=== PATIENT | male | born 1950 | race Caucasian/White ===

== ENCOUNTER 2019-01-22 07:45 | Day surgery (SDC) | payer MEDICARE, OTHER ==
[~2019-01-22] VITALS: Ht 177.8 cm; Wt 81.8 kg
[~2019-01-22 07:45] MED LIST: ASPI325T6 PO; ASPIRIN 32325 MG/TAB PO; ATIVAN 1MG T1 MG/TAB PO; CARDURA 1MG1 MG PO; CRESTOR40 MG PO; EFFEXOR-XR150 MG PO; EPA FISH OIL1000 MG PO; LIPITOR 40MG TA40 MG PO; MILK OF MA400 MG/5 M PO; MULTIPLE VITAMI1 CAP PO; NIACIN500 M1 PO; NORCO 325 MG-101 TAB PO; NORCO 325 MG-7.1 TAB PO; PRILOSEC10 MG PO; PROSCAR 5MG5 MG PO; PROSTATE SUPPOR PO; ROXICODONE 55 MG/TAB PO; SENOKOT8.6 MG PO; STOOL SOFTENER250 M1 PO; TOPROL XL 25MG25 MG PO; TYLENOL 500MG500 MG PO; ULTRAM 50MG TAB50 MG PO; [UNRECOGNIZED DRUG - OTHER]; [UNRECOGNIZED DRUG - OTHER] PO
[2019-01-22 08:14] VITALS: BP 143/100; PULSE 85; TEMP 97.4
[2019-01-22] MEDS ORDERED: ASPIRIN E.C. 8181 MG PO (08:21)
[2019-01-22] MEDS ORDERED: CARDURA 2MG2 MG PO (08:21)
[2019-01-22] MEDS ORDERED: EFFEXOR-XR150 MG PO (08:22)
[2019-01-22] MEDS ORDERED: PROSCAR 5MG5 MG PO (08:23)
[2019-01-22] MEDS ORDERED: LIPITOR 40MG TA40 MG PO (08:24)
[2019-01-22] MEDS ORDERED: EPA FISH OIL1 SGL PO (08:24)
[2019-01-22] MEDS ORDERED: ATIVAN 1MG T1 MG/TAB PO (08:25)
[2019-01-22] MEDS ORDERED: MULTIPLE VITAMI1 CAP PO (08:26)
[2019-01-22] MEDS ORDERED: PRILOSEC 20MG20 MG PO (08:28)
[2019-01-22] MEDS ORDERED: TYLENOL 500MG500 MG PO (08:30)
[2019-01-22] MEDS ORDERED: STOOL SOFTENER240 M1 PO (08:30)
[2019-01-22] MEDS ORDERED: COZAAR 25MG25 MG/TAB PO (08:31)
[2019-01-22] MEDS ORDERED: PROBIOTIC FORMU1 CAP PO (08:32)
[2019-01-22] MEDS ORDERED: MELATONIN5 M1 PO (08:32)
--- NOTE | 2019-01-22 08:34 | NUR ---
TO RM AT 0747- CALL LIGHT IN REACH AT BEDSIDE
[2019-01-22 09:10] VITALS: BP 137/90; PULSE 76
--- NOTE | 2019-01-22 09:10 | NUR ---
TO BAY 4 PER CART FROM ENDOSCOPY. ALERT ORIENTED X3, TALKING TO STAFF AND . AMBULATED TO RECLINER WITH ASSIST AND TOLERATED WELL. RECEIVED COFFEE AND MUFFIN. DR MACKEY TALKED TO PATIENTS PRIOR TO PATIENT RETURNING TO .
[2019-01-22 09:15] VITALS: BP 113/94; PULSE 88
[2019-01-22 09:30] VITALS: BP 111/77; PULSE 71
--- NOTE | 2019-01-22 09:30 | NUR ---
ATE 100% AND TOLERATED WELL.
--- NOTE | 2019-01-22 09:50 | NUR ---
RECEIVED DISCHARGE INSTRUCTIONS AND VERBALIZED UNDERSTANDING. DISCONTINUED IV AND INT- CATHETER INTACT. PATIENT GETTING DRESSED
--- NOTE | 2019-01-22 10:00 | NUR ---
DISCHARGED PER WC BY NURSING STAFF TO PRIVATE CAR IN CARE OF - [facility].
== END 2019-01-22 10:55 | disposition home or self-care (01) ==
LOC: SDCO 07:45
DX: Z12.11 Encounter for screening for malignant neoplasm of colon (principal); Z86.010 Personal history of colon polyps; Z80.0 Family history of malignant neoplasm of digestive organs; K57.30 Diverticulosis of large intestine without perforation or abscess without bleeding; I10 Essential (primary) hypertension; I25.10 Atherosclerotic heart disease of native coronary artery without angina pectoris; K21.9 Gastro-esophageal reflux disease without esophagitis; K44.9 Diaphragmatic hernia without obstruction or gangrene; Z79.899 Other long term (current) drug therapy; Z79.82 Long term (current) use of aspirin; Z82.49 Family history of ischemic heart disease and other diseases of the circulatory system
CPT/HCPCS: J2250; J2405; J3010; J7030